=== PATIENT | male | born 1960 | race African-American/Black ===

== ENCOUNTER 2016-09-22 20:58 | Inpatient (IN) | payer MEDICAID ==
[~2016-09-22] VITALS: Ht 165.1 cm; Wt 72.0 kg
[~2016-09-22 20:58] MED LIST: VITA1CAP PO; [UNRECOGNIZED DRUG - OTHER]
[2016-09-22 21:32] LABS: BASOPHILS % (AUTO) 0.3 % (0.0-2.0); EOSINOPHILS % (AUTO) 3.7 % (1.0-6.0); HEMATOCRIT 39.8 % (41-53); HEMOGLOBIN 13.7 g/dL (13.5-17.5); LYMPHOCYTES # (AUTO) 1.9 K/uL (1.0-4.8); LYMPHOCYTES % (AUTO) 37.5 % (22.0-44.0); MEAN CORPUSCULAR HEMOGLOBIN 31.8 pg (26.0-34.0); MEAN CORPUSCULAR HGB CONC 34.4 G/dL (31.0-37.0); MEAN CORPUSCULAR VOLUME 93 fL (80-100); MONOCYTES # (AUTO) 0.5 K/uL (0.1-1.0); MONOCYTES % (AUTO) 10.2 % (2.0-9.0); NEUTROPHILS # (AUTO) 2.4 K/uL (1.8-7.7); NEUTROPHILS % (AUTO) 48.3 % (40.0-70.0); PLATELET COUNT (AUTO) 173 K/uL (150-450); RED BLOOD CELL COUNT(AUTO) 4.29 MIL/uL (4.50-5.90); RED CELL DISTRIBUTION WIDTH 14.3 % (11.5-14.5)
[2016-09-22 21:35] LABS: ANION GAP 10 mmol/L (8-16); CALCIUM, TOTAL 9.6 mg/dL (8.8-10.5); CARBON DIOXIDE 26 mmol/L (22-29); CHLORIDE 108 mmol/L (98-107); CREATININE 1.08 mg/dL (0.60-1.30); GLOMERULAR FILTR. RATE CALC > 60 mL/min (>60); POTASSIUM 3.5 mmol/L (3.5-5.1); SODIUM SERUM 144 mmol/L (136-145); UREA NITROGEN, BLOOD 8 mg/dL (7-18)
[2016-09-22 21:40] LABS: ALANINE AMINOTRANSFERASE 22 U/L (12-78); ALBUMIN 3.6 g/dL (3.4-5.0); ASPARTATE AMINOTRANSFERASE 19 U/L (15-37); BILIRUBIN,TOTAL 0.4 mg/dL (0.1-1.0)
[2016-09-22] MEDS ORDERED: HALOPERIDOL 5 MG TABLET PO PRN (21:45)
[2016-09-22] MEDS ORDERED: ZOLPIDEM TARTRATE 10 MG TABLET PO PRN (21:45)
[2016-09-23 00:20] VITALS: BP 138/76
[2016-09-23 08:09] VITALS: BP 134/81
[2016-09-23] MEDS: LORazepam 2 MG TABLET PO PRN (08:34)
[2016-09-23] MEDS ORDERED: ACETAMINOPHEN 325 MG TABLET PO PRN (09:45)
[2016-09-23] MEDS ORDERED: BENZOCAINE/MENTHOL LOZENGE MM PRN (09:45)
[2016-09-23] MEDS ORDERED: ALBUTEROL SULFATE HFA 90 MCG/PUFF 8 GM INHALER IH PRN (09:45)
[2016-09-23] MEDS ORDERED: PETROLATUM,WHITE 71 GM JELLY TP PRN (09:45)
[2016-09-23] MEDS ORDERED: CloNIDine HCL 0.1 MG TABLET PO PRN (09:45)
[2016-09-23] MEDS ORDERED: ONDANSETRON HCL 4 MG TABLET PO PRN (09:45)
[2016-09-23] MEDS ORDERED: IBUPROFEN 600 MG TABLET PO PRN (09:45)
[2016-09-23] MEDS ORDERED: MAGNESIUM HYDROXIDE SUSPENSION 30 ML UDCUP PO PRN (09:45)
[2016-09-23] MEDS ORDERED: MAG HYDROX/AL HYDROX/SIMETH ES 30 ML SUSPENSION UDCUP PO PRN (09:45)
[2016-09-23] MEDS ORDERED: LOPERAMIDE HCL 2 MG CAPSULE PO PRN (09:45)
[2016-09-23] MEDS ORDERED: BACITRACIN 28.4 GM OINTMENT TP PRN (09:45)
[2016-09-23] MEDS: NICOTINE 21 MG/24 HOUR PATCH TD SCH (09:50)
[2016-09-23 16:20] VITALS: BP 113/72
[2016-09-23] MEDS ORDERED: QUEtiapine FUMARATE 200 MG TABLET PO SCH (21:00)
[2016-09-24 06:37] VITALS: BP 134/70
[2016-09-24 08:30] VITALS: BP 130/82
[2016-09-24] MEDS: NICOTINE 21 MG/24 HOUR PATCH TD SCH (08:48)
[2016-09-24 16:16] VITALS: BP 132/90
[2016-09-24] MEDS: LORazepam 2 MG TABLET PO PRN (20:12)
[2016-09-24] MEDS ORDERED: OLANZapine 5 MG TABLET PO SCH (21:00)
[2016-09-25 07:16] VITALS: BP 128/85
[2016-09-25] MEDS: NICOTINE 21 MG/24 HOUR PATCH TD SCH (08:26)
[2016-09-25] MEDS ORDERED: OLAN5TAB2 PO (11:43)
== END 2016-09-25 12:35 | disposition home or self-care (01) | DRG 750 ==
LOC: EMS 21:01 → B3A 22:55
PROVIDERS: ADMIT Psychiatry & Neurology Psychiatry; ATTEND Psychiatry & Neurology Psychiatry
DX: F25.0 Schizoaffective disorder, bipolar type (principal); J44.9 Chronic obstructive pulmonary disease, unspecified; I10 Essential (primary) hypertension; H40.9 Unspecified glaucoma; Z72.0 Tobacco use; K21.9 Gastro-esophageal reflux disease without esophagitis; G47.00 Insomnia, unspecified; K59.00 Constipation, unspecified
CPT/HCPCS: 71020; 99285; G0480